=== PATIENT | male | born 1975 | race Caucasian/White ===

== ENCOUNTER 2017-12-24 08:56 | Inpatient (IN) | payer OTHER ==
[~2017-12-24] VITALS: Ht 172.7 cm; Wt 70.1 kg
[~2017-12-24 08:56] MED LIST: ATARAX10 MG PO; BUMETANIDE1 MG PO; BUMEX1 MG PO; Bumex PO; CALCITRIOL0.25 MCG PO; CELEXA20 MG PO; CITALOPRAM HBR20 MG PO; CLOBETASOL PROP60 G1 TP; CORTIZONE-1057 GM TP; Cozaar PO; DELTASONE20 MG PO; DESYREL100 MG PO; DIPROSONE 0.05%15 GM TP; DRISDOL50000 UNIT PO; Flagyl PO; HYDROCORTISONE 1% TP; HYDROXYZINE HCL10 MG PO; Hytone 2.5% TP; LASIX10 MG PO; LEVOTHROID25 MCG PO; LEVOTHYROXINE25 MCG PO; LEVOTHYROXINE50 MCG PO; LIDEX 0.05% SOL60 ML TP; LIPITOR40 MG PO; LOPRESSOR25 MG PO; LOTENSIN10 MG PO; Lasix PO; Levaquin PO; Levothroid,Synthroid PO; Lipitor PO; NOHOMEMEDS; PAROXETINE HCL20 MG PO; PERCOCET 5-3251 EACH PO; PHOSLO667 M1 PO; POTASSIUM CHLO20 ME1 PO; PREDNISONE20 MG PO; Protonix PO; RISPERIDONE1 MG PO; ROCALTROL0.25 MCG PO; Rocaltrol PO; VITAMIN B-12250 MCG PO; VITAMIN B-12500 MC2 PO; Vitamin D, Drisdol PO; ZOCOR20 MG PO; ZOFRAN ODT4 MG PO; ZYPREXA10 MG PO; Zestril,Prinivil PO; ZyPREXA PO; [UNRECOGNIZED DRUG - OTHER]; celeXA PO; predniSONE PO
[2017-12-24 09:55] LABS: BASOPHIL (%) 0.6 % (0-1); EOSINOPHIL (%) 2.9 % (0-5); EOSINOPHIL COUNT 0.2 K/uL (0-0.3); IMMATURE GRANULOCYTE (%) 0.6 % (0.0-0.7); LYMPHOCYTE (%) 15.5 % (15-42); MCH 31.6 PG (29.0-34.0); MCHC 33.3 G/DL (30.0-36.0); MCV 94.9 FL (86-99); MONOCYTE (%) 6.9 % (3-12); MONOCYTE COUNT 0.5 K/uL (0-0.8); NEUTROPHIL (%) 73.5 % (45-76); NEUTROPHIL COUNT 4.8 K/uL (1.8-6.4); PLATELET COUNT 258 K/uL (156-360); RBC DIS.WIDTH-CV 14.4 % (11.8-14.6); RBC DIS.WIDTH-SD 49.3 % (39-53); RED BLOOD COUNT 2.53 M/uL (4.00-5.50); WHITE BLOOD COUNT 6.5 K/uL (4.1-10.2)
[2017-12-24 09:58] LABS: INTER. NORMALIZED RATIO 1.2
[2017-12-24 10:04] LABS: ALBUMIN 1.6 g/dL (3.2-4.8)
[2017-12-24 10:05] LABS: CHLORIDE 113 mEq/L (99-109); POTASSIUM 4.1 mEq/L (3.7-5.4); SODIUM 142 mEq/L (136-147)
[2017-12-24 10:07] LABS: GLUCOSE 105 mg/dL (70-99); TOTAL PROTEIN 4.2 g/dL (6.4-8.3)
[2017-12-24 10:09] LABS: TOTAL BILIRUBIN 0.2 mg/dL (0.0-1.0)
[2017-12-24 10:10] LABS: ALKALINE PHOSPHATASE 80 IU/L (3-129)
[2017-12-24 10:11] LABS: CREATININE 1.6 mg/dL (0.6-1.3); GFR ESTIMATE (CALCULATED) 50 mL/min/ (58.99-99999)
[2017-12-24 10:12] LABS: AST (GOT) 15 IU/L (2-34); UREA NITROGEN (BUN) 28 mg/dL (9-23)
[2017-12-24 10:13] LABS: ALT (GPT) 11 IU/L (3-49)
[2017-12-24 10:14] LABS: CREATINE KINASE 112 IU/L (1-294); LIPASE 82 U/L (1.0-51.0)
[2017-12-24 10:17] LABS: TROP-I INTERPRETATION NEGATIVE; TROPONIN-I < 0.01 ng/mL (0.0-0.30)
[2017-12-24 11:38] LABS: APPEARANCE SL.HAZY ((CLEAR)); BILIRUBIN NEGATIVE; BLOOD SMALL; COLOR YELLOW ((YELLOW)); GLUCOSE (STRIP) 150; KETONES 5; LEUKOCYTES NEGATIVE; NITRITE NEGATIVE; PROTEIN (STRIP) >=500; UROBILINOGEN 0.2 MG/DL (0.2-1.0)
[2017-12-24 11:42] LABS: BACTERIA RARE /HPF; EPITHELIAL CELLS RARE /HPF; MUCUS TRACE /LPF; RED BLOOD CELLS 0-5 /HPF (0-5); UCUL ADDED? YES
[2017-12-24 11:49] LABS: AMPHETAMINE NEGATIVE (500 ng/mL); BARBITURATES NEGATIVE (200 ng/mL); BENZODIAZEPINES NEGATIVE (150 ng/mL); BUPRENORPHINE NEGATIVE (10 ng/mL); COCAINE NEGATIVE (150 ng/mL); METHADONE NEGATIVE (200 ng/mL); METHAMPHETAMINE NEGATIVE (500 ng/mL); OPIATES (MORPHINE) NEGATIVE (100 ng/mL); OXYCODONE NEGATIVE (100 ng/mL); PHENCYCLIDINE NEGATIVE (25 ng/mL); PROPOXYPHENE NEGATIVE (300 ng/mL); THC CANNABINOIDS NEGATIVE (50 ng/mL); TRICYCLIC ANTIDEPRESSANTS NEGATIVE (300 ng/mL)
[2017-12-24 13:20] LABS: ABSOLUTE RETICULOCYTE CT. 0.04 M/uL (0.02-0.08); IMM.RETIC FRACTION 13.6 % (3-19); RETIC HGB EQUIVALENT 33.2 (28-36)
[2017-12-24 13:22] LABS: RETICULOCYTE COUNT 1.8 % (0.5-1.8)
[2017-12-24 14:30] VITALS: BP 152/95
[2017-12-24 14:38] LABS: FERRITIN 998 NG/ML (22-322)
[2017-12-24 15:09] LABS: IRON 29 MCG/DL (35-150); TRANSFERRIN (TIBC) 85.3 mg/dL (215-380); TRANSFERRIN SATUR. 34 % (20-55)
[2017-12-24 16:14] LABS: TYPE OF FLUID PARACENTESIS
[2017-12-24 16:55] LABS: BODY FLUID GLUCOSE 136 MG/DL; BODY FLUID LDH 35 IU/L; BODY FLUID PROTEIN < 3.0 G/DL
[2017-12-24 17:19] LABS: BODY FLUID EOSINOPHILS 0 % (0-25); MONONUCLEAR WBC'S 83 %; POLYNUCLEAR WBC'S 17 % (0-25)
[2017-12-24 17:21] LABS: APPEARANCE CLOUDY-WHITE; BODY FLUID RBC'S < 1000 /MM^3 (0-100); BODY FLUID WBC'S 29 /MM^3 (0-500)
[2017-12-24 20:49] VITALS: BP 117/62
[2017-12-25 00:33] VITALS: BP 119/72
[2017-12-25 04:00] VITALS: BP 126/73
[2017-12-25 06:35] LABS: HEMATOCRIT 22.4 % (38.0-50.0); HEMOGLOBIN 7.2 G/DL (12.5-16.6); MCH 31.3 PG (29.0-34.0); MCHC 32.1 G/DL (30.0-36.0); MCV 97.4 FL (86-99); PLATELET COUNT 222 K/uL (156-360); RBC DIS.WIDTH-CV 14.2 % (11.8-14.6); RBC DIS.WIDTH-SD 50.4 % (39-53)
[2017-12-25 07:21] LABS: CHLORIDE 113 MEQ/L (99-109); CREATININE 1.6 MG/DL (0.6-1.3); GFR ESTIMATE (CALCULATED) 50 mL/min/ (58.99-99999); GLUCOSE 94 mg/dL (70-99); PHOSPHORUS 2.3 mg/dL (2.5-4.9); POTASSIUM 4.1 MEQ/L (3.7-5.4); SODIUM 144 MEQ/L (136-147); UREA NITROGEN (BUN) 29 mg/dL (9-23); URIC ACID 5.2 mg/dL (3.1-9.2)
[2017-12-25 07:23] LABS: ALBUMIN 1.1 G/DL (3.2-4.8)
[2017-12-25 07:39] VITALS: BP 115/62
[2017-12-25 09:04] LABS: INTACT PARATHYROID HORMONE 167 pg/mL (10-69)
[2017-12-25 11:50] VITALS: BP 99/60
[2017-12-25 11:56] LABS: ALKALINE PHOSPHATASE 57 IU/L (3-129); ALT (GPT) 6 IU/L (3-49); AST (GOT) 7 IU/L (2-34); TOTAL BILIRUBIN 0.2 MG/DL (0.0-1.0); TOTAL PROTEIN 3.1 G/DL (6.4-8.3)
[2017-12-25 16:11] VITALS: BP 132/70
[2017-12-25 16:51] LABS: UR CREATININE CONCENTRATION 146.6 MG/DL
[2017-12-25 19:44] VITALS: BP 99/67
[2017-12-26] VITALS (7 sets, daily range): BP systolic 105–141; BP diastolic 64–94
[2017-12-26 06:40] LABS: CHLORIDE 112 MEQ/L (99-109); CREATININE 1.5 MG/DL (0.6-1.3); GFR ESTIMATE (CALCULATED) 54 mL/min/ (58.99-99999); PHOSPHORUS 1.7 mg/dL (2.5-4.9); POTASSIUM 4.3 MEQ/L (3.7-5.4); SODIUM 143 MEQ/L (136-147); UREA NITROGEN (BUN) 29 mg/dL (9-23)
[2017-12-26 06:48] LABS: GLUCOSE 173 mg/dL (70-99)
[2017-12-26 06:49] LABS: ALBUMIN < 1.5 G/DL (3.2-4.8)
[2017-12-26 08:03] LABS: HEMATOCRIT 23.2 % (38.0-50.0); HEMOGLOBIN 7.4 G/DL (12.5-16.6); MCH 31.4 PG (29.0-34.0); MCHC 31.9 G/DL (30.0-36.0); MCV 98.3 FL (86-99); PLATELET COUNT 251 K/uL (156-360); RBC DIS.WIDTH-CV 13.9 % (11.8-14.6); RED BLOOD COUNT 2.36 M/uL (4.00-5.50); WHITE BLOOD COUNT 4.8 K/uL (4.1-10.2)
[2017-12-26 10:59] LABS: HEPATITIS B SURFACE ANTIGEN Nonreactive
[2017-12-26 11:00] LABS: HEPATITIS C ANTIBODY Nonreactive
[2017-12-26 11:01] LABS: ANTI-HEPATITIS B CORE (IGM) Nonreactive; HEPATITIS B SURFACE ANTIBODY Nonreactive
[2017-12-27 03:44] VITALS: BP 144/75
[2017-12-27 06:23] LABS: PHOSPHORUS 1.6 mg/dL (2.5-4.9)
[2017-12-27 06:25] LABS: CHLORIDE 115 MEQ/L (99-109); CREATININE 1.6 MG/DL (0.6-1.3); GFR ESTIMATE (CALCULATED) 50 mL/min/ (58.99-99999); GLUCOSE 149 mg/dL (70-99); SODIUM 147 MEQ/L (136-147); UREA NITROGEN (BUN) 31 mg/dL (9-23)
[2017-12-27 06:40] LABS: ALBUMIN < 1.5 G/DL (3.2-4.8)
[2017-12-27 07:25] VITALS: BP 127/75
[2017-12-27 11:11] VITALS: BP 128/81
[2017-12-27 13:04] LABS: UR CREATININE CONCENTRATION 98.8 MG/DL
[2017-12-27 13:53] LABS: 24 HR VOLUME 550 MLS
[2017-12-27 15:18] VITALS: BP 123/63
[2017-12-27 20:08] VITALS: BP 149/99
[2017-12-28 00:37] VITALS: BP 136/97
[2017-12-28 04:20] VITALS: BP 143/89
[2017-12-28 06:38] LABS: CHLORIDE 115 MEQ/L (99-109); CREATININE 1.5 MG/DL (0.6-1.3); GFR ESTIMATE (CALCULATED) 54 mL/min/ (58.99-99999); PHOSPHORUS 1.9 mg/dL (2.5-4.9); POTASSIUM 3.7 MEQ/L (3.7-5.4); SODIUM 149 MEQ/L (136-147); UREA NITROGEN (BUN) 35 mg/dL (9-23)
[2017-12-28 06:42] LABS: GLUCOSE 252 mg/dL (70-99)
[2017-12-28 06:43] LABS: ALBUMIN < 1.5 G/DL (3.2-4.8)
[2017-12-28 07:37] VITALS: BP 151/81
[2017-12-28 11:02] VITALS: BP 145/93
[2017-12-28 15:30] LABS: HIV-1/2 AB/AG COMBO Nonreactive
[2017-12-28 15:34] VITALS: BP 148/90
[2017-12-28 19:09] VITALS: BP 120/80
[2017-12-29 04:01] VITALS: BP 121/80
[2017-12-29 06:36] LABS: CHLORIDE 113 MEQ/L (99-109); CREATININE 1.4 MG/DL (0.6-1.3); GFR ESTIMATE (CALCULATED) 59 mL/min/ (58.99-99999); PHOSPHORUS 2.2 mg/dL (2.5-4.9); POTASSIUM 3.5 MEQ/L (3.7-5.4); SODIUM 147 MEQ/L (136-147); UREA NITROGEN (BUN) 32 mg/dL (9-23)
[2017-12-29 06:44] LABS: ALBUMIN < 1.5 G/DL (3.2-4.8); GLUCOSE 118 mg/dL (70-99)
[2017-12-29 07:34] VITALS: BP 122/85
[2017-12-29 07:43] LABS: BASOPHIL (%) 0 % (0-1); EOSINOPHIL (%) 0 % (0-5); HEMATOCRIT 19.6 % (38.0-50.0); HEMOGLOBIN 6.3 G/DL (12.5-16.6); IMMATURE GRANULOCYTE (%) 1.7 % (0.0-0.7); LYMPHOCYTE (%) 13.9 % (15-42); LYMPHOCYTE COUNT 1.7 K/uL (1.0-2.8); MCH 31.8 PG (29.0-34.0); MCHC 32.1 G/DL (30.0-36.0); MONOCYTE (%) 8.3 % (3-12); NEUTROPHIL (%) 76.1 % (45-76); NEUTROPHIL COUNT 9.3 K/uL (1.8-6.4); NRBC (%) 0.8 /100 WBC (0-0); PLATELET COUNT 291 K/uL (156-360); RBC DIS.WIDTH-CV 14.4 % (11.8-14.6); RBC DIS.WIDTH-SD 51.7 % (39-53); RED BLOOD COUNT 1.98 M/uL (4.00-5.50); WHITE BLOOD COUNT 12.2 K/uL (4.1-10.2)
[2017-12-29 08:40] LABS: HEMATOCRIT 23.9 % (38.0-50.0); HEMOGLOBIN 8.1 G/DL (12.5-16.6); MCV 97.2 FL (86-99)
[2017-12-29 08:49] LABS: MAGNESIUM 1.4 mg/dl (1.3-2.7)
[2017-12-29 11:11] VITALS: BP 117/76
[2017-12-29 14:44] LABS: HEMATOCRIT 21.7 % (38.0-50.0); HEMOGLOBIN 7.3 G/DL (12.5-16.6); MCV 96.4 FL (86-99)
[2017-12-29 15:49] VITALS: BP 119/84
[2017-12-29 19:18] VITALS: BP 114/79
[2017-12-29 23:20] VITALS: BP 121/74
[2017-12-30] VITALS (11 sets, daily range): BP systolic 111–150; BP diastolic 71–89
[2017-12-30 05:25] LABS: HEMATOCRIT 19.4 % (38.0-50.0); MCH 31.7 PG (29.0-34.0); MCHC 32.5 G/DL (30.0-36.0); MCV 97.5 FL (86-99); NRBC (%) 2.3 /100 WBC (0-0); PLATELET COUNT 305 K/uL (156-360); RBC DIS.WIDTH-CV 14.6 % (11.8-14.6); RBC DIS.WIDTH-SD 51.3 % (39-53); RED BLOOD COUNT 1.99 M/uL (4.00-5.50); WHITE BLOOD COUNT 11.2 K/uL (4.1-10.2)
[2017-12-30 05:30] LABS: HEMOGLOBIN 6.3 G/DL (12.5-16.6)
[2017-12-30 06:58] LABS: HEMATOCRIT 20.7 % (38.0-50.0); MCV 98.1 FL (86-99)
[2017-12-30 07:07] LABS: ALBUMIN 1.5 G/DL (3.2-4.8); CHLORIDE 111 MEQ/L (99-109); CREATININE 1.5 MG/DL (0.6-1.3); GFR ESTIMATE (CALCULATED) 54 mL/min/ (58.99-99999); GLUCOSE 143 mg/dL (70-99); POTASSIUM 3.9 MEQ/L (3.7-5.4); SODIUM 146 MEQ/L (136-147); UREA NITROGEN (BUN) 37 mg/dL (9-23)
[2017-12-30 07:07] LABS: HEMOGLOBIN 6.8 G/DL (12.5-16.6)
[2017-12-31 00:12] VITALS: BP 135/86
[2017-12-31 08:00] VITALS: BP 134/87
[2017-12-31 08:56] LABS: HEMATOCRIT 36.8 % (38.0-50.0); HEMOGLOBIN 12.2 G/DL (12.5-16.6); MCH 30.7 PG (29.0-34.0); MCHC 33.2 G/DL (30.0-36.0); MCV 92.5 FL (86-99); NRBC (%) 3.5 /100 WBC (0-0); PLATELET COUNT 324 K/uL (156-360); RBC DIS.WIDTH-CV 16.1 % (11.8-14.6); RBC DIS.WIDTH-SD 53.8 % (39-53); RED BLOOD COUNT 3.98 M/uL (4.00-5.50)
[2017-12-31 09:14] LABS: ALBUMIN 1.9 G/DL (3.2-4.8); CHLORIDE 105 MEQ/L (99-109); CREATININE 1.5 MG/DL (0.6-1.3); GFR ESTIMATE (CALCULATED) 54 mL/min/ (58.99-99999); GLUCOSE 114 mg/dL (70-99); MAGNESIUM 1.4 mg/dl (1.3-2.7); PHOSPHORUS 2.7 mg/dL (2.5-4.9); POTASSIUM 3.4 MEQ/L (3.7-5.4); SODIUM 144 MEQ/L (136-147); UREA NITROGEN (BUN) 44 mg/dL (9-23)
[2017-12-31] MEDS ORDERED: LOPRESSOR25 MG PO (09:31)
[2017-12-31] MEDS ORDERED: TORSEMIDE20 MG PO (09:31)
[2017-12-31] MEDS ORDERED: SPIRONOLACTONE25 MG PO (09:31)
[2017-12-31] MEDS ORDERED: PRAVASTATIN SOD40 MG PO (09:31)
[2017-12-31] MEDS ORDERED: LISINOPRIL10 MG PO (09:31)
[2017-12-31] MEDS ORDERED: ERGOCALCIF50000 UNIT PO (09:32)
[2017-12-31] MEDS ORDERED: NEPHRO-VITE,1 TABLET PO (09:32)
[2017-12-31] MEDS ORDERED: CYANOCOBAL1000 MCG/2 IM (09:32)
[2017-12-31] MEDS ORDERED: CALCITRIOL0.25 MCG PO (09:32)
[2017-12-31] MEDS ORDERED: CALCIUM CARB1 TABLET PO (09:33)
[2017-12-31] MEDS ORDERED: PREDNISONE20 MG PO (09:38)
[2017-12-31] MEDS ORDERED: MAG DELAY70 MG PO (09:49)
[2017-12-31] MEDS ORDERED: K-DUR20 MEQ PO (09:49)
== END 2017-12-31 13:30 | DRG 682 ==
LOC: EME 08:56 → EDOF 11:41 → 5SOUTH 11:41 → CANRESERV 11:44 → ENRESERV 11:55 → 5SOUTH 13:22
PROVIDERS: Emergency Medicine; Hospitalist; Internal Medicine; Internal Medicine Nephrology; Physician Assistant Medical
PROC: 0W9G3ZZ Drainage of Peritoneal Cavity, Percutaneous Approach (ICD-10-PCS; principal; 2017-12-24)
PROC: 30233N1 Transfusion of Nonautologous Red Blood Cells into Peripheral Vein, Percutaneous Approach (ICD-10-PCS; 2017-12-30)
DX: N17.9 Acute kidney failure, unspecified (principal); N04.1 Nephrotic syndrome with focal and segmental glomerular lesions; J18.9 Pneumonia, unspecified organism; E43 Unspecified severe protein-calorie malnutrition; R18.8 Other ascites; E86.0 Dehydration; E87.0 Hyperosmolality and hypernatremia; E87.6 Hypokalemia; E87.70 Fluid overload, unspecified; E83.51 Hypocalcemia; E83.39 Other disorders of phosphorus metabolism; N26.9 Renal sclerosis, unspecified; I12.9 Hypertensive chronic kidney disease with stage 1 through stage 4 chronic kidney disease, or unspecified chronic kidney disease; N18.4 Chronic kidney disease, stage 4 (severe); N25.81 Secondary hyperparathyroidism of renal origin; D63.1 Anemia in chronic kidney disease; Z91.19 Patient's noncompliance with other medical treatment and regimen; Z59.0 Homelessness; R73.9 Hyperglycemia, unspecified; T38.0X5A Adverse effect of glucocorticoids and synthetic analogues, initial encounter; E53.8 Deficiency of other specified B group vitamins; E78.5 Hyperlipidemia, unspecified; F20.9 Schizophrenia, unspecified; F31.9 Bipolar disorder, unspecified; F60.9 Personality disorder, unspecified; L40.9 Psoriasis, unspecified; R41.83 Borderline intellectual functioning; E03.9 Hypothyroidism, unspecified; R01.1 Cardiac murmur, unspecified; M54.9 Dorsalgia, unspecified; R00.0 Tachycardia, unspecified; R26.2 Difficulty in walking, not elsewhere classified; D50.9 Iron deficiency anemia, unspecified; Z74.01 Bed confinement status; Z86.73 Personal history of transient ischemic attack (TIA), and cerebral infarction without residual deficits; Z87.891 Personal history of nicotine dependence
CPT/HCPCS: 49083; 71045; 74176; 80053; 80069; 80076; 81003; 81050; 82306; 82330; 82550; 82570; 82575; 82607; 82728; 82746; 82945; 82948; 83540; 83605; 83615 91; 83690; 83735; 83970; 83986 90; 84145 90; 84156; 84157; 84466; 84484; 84550; 85014; 85018; 85025; 85027; 85046; 85610; 86705; 86706; 86803; 86850; 86900; 86901; 86920; 87040; 87070; 87075; 87086; 87205; 87340; 87389; 88108; 88305; 89051; 93005; 93306; 99281; 99285; J0456; J0696; J0881; J1644; J1815; J1940; J2930; J3420; J3475; J7030; J7050; J7512; P9016